=== PATIENT | male | born 2005 | race Hispanic/Latino ===

== ENCOUNTER 2024-05-29 00:55 | Emergency (ER) | payer OTHER ==
[~2024-05-29] VITALS: Ht 177.8 cm; Wt 77.0 kg
[~2024-05-29 00:55] MED LIST: AMOXICILLI200 MG/5 M OR
[2024-05-29] MEDS ORDERED: IBUPROFEN 600 MG/TAB PO ONE (01:05)
[2024-05-29] MEDS ORDERED: ACETAMINOPHEN 500 MG TAB PO ONE (01:05)
[2024-05-29 01:25] VITALS: BP 135/72
[2024-05-29] MEDS ORDERED: TRAMADOL HYDROC50 M1 PO (03:05)
[2024-05-29 03:20] VITALS: BP 135/72
== END 2024-05-29 03:20 | disposition home or self-care (01) | DRG 563 ==
LOC: ED 00:55
DX: S52.502A Unspecified fracture of the lower end of left radius, initial encounter for closed fracture (principal); S16.1XXA Strain of muscle, fascia and tendon at neck level, initial encounter; S00.511A Abrasion of lip, initial encounter; V47.5XXA Car driver injured in collision with fixed or stationary object in traffic accident, initial encounter